=== PATIENT | male | born 1950 ===

== ENCOUNTER → 2023-11-11 17:34 | Outpatient (REF) | payer MEDICARE, SELFPAY | LOC: MRI 3T 17:34 | PROVIDERS: ATTENDING PHYSICIAN Specialist; FAMILY PHYSICIAN Internal Medicine | DX: R97.20 Elevated prostate specific antigen [PSA] (principal) | CPT/HCPCS: 72197; A9575 ==

== ENCOUNTER 2023-12-06 06:25 | Day surgery (SDC) | payer MEDICARE, SELFPAY ==
[2023-12-02 08:55] VITALS: BMI 26.6
[2023-12-02 10:07] LABS: Hemoglobin 15.8 g/dL (13.0-18.0); Mean Corp Hgb Conc. 35.1 g/dL (33.0-37.0); Mean Corpuscular Hgb 30.7 pg (27.0-31.0); Mean Corpuscular Volume 87.5 fL (80.0-94.0); Mean Platelet Volume 9.7 fL (7.4-10.4); Platelet Count 182 10^3/uL (130-400); Red Blood Cell Count 5.14 10^6/uL (4.70-6.10); Red Cell Dist. Width 12.8 % (11.5-14.5); White Blood Cell Count 4.6 10^3/uL (4.8-10.8)
[2023-12-02 10:14] LABS: INR 0.98; PT 12.8 Sec (11.4-14.6)
[2023-12-02 10:15] LABS: APTT 25.9 Sec (23.4-35.0)
[2023-12-02 10:23] LABS: Blood Urea Nitrogen 22 mg/dl (9-20); Calcium 9.6 mg/dl (8.4-10.2); Carbon Dioxide 25 mmol/L (22-30); Chloride 105 mmol/L (98-107); Estimated Creatinine Clearance 50 ml/min; Glucose 100 mg/dl (70-99); Potassium 4.8 mmol/L (3.5-5.1); Sodium 138 mmol/L (135-145); eGFR > 60.00
[2023-12-06] VITALS (15 sets, daily range): BP systolic 64–117; BP diastolic 52–83; BMI 26.6
[2023-12-06] MEDS: NEOMYCIN ENEMA 1 BOTTLE RECTAL (09:37)
[2023-12-06] MEDS: NORMOSOL-R 1000 IV (09:47)
== END 2023-12-06 17:15 | disposition home or self-care (01) ==
LOC: SDS 06:25
PROVIDERS: ATTENDING PHYSICIAN Specialist; FAMILY PHYSICIAN Internal Medicine
DX: C61 Malignant neoplasm of prostate (principal); R93.89 Abnormal findings on diagnostic imaging of other specified body structures; Z80.42 Family history of malignant neoplasm of prostate
CPT/HCPCS: 55700; 36415; 76998; 80048; 85027; 85610; 85730; 88305; 88344; 93005

== ENCOUNTER 2024-01-18 06:10 | Day surgery (SDC) | payer MEDICARE, SELFPAY ==
[2024-01-18] VITALS (17 sets, daily range): BP systolic 86–127; BP diastolic 51–80; BMI 24.4
[2024-01-18] MEDS: NORMOSOL-R/PLASMALYTE-A 1000 IV ×2 (07:05→15:14)
[2024-01-18] MEDS: NEOMYCIN ENEMA 1 BOTTLE RECTAL (07:15)
--- NOTE | 2024-01-18 13:30 | PTCARENOTE ---
Pt was received from PACU at 1330. Denies pain. Sutton draining yellow urine. Pt is resting in bed comfortably.
[2024-01-18] MEDS: TORADOL 15 MG IV ×2 (16:46→22:03)
[2024-01-18] MEDS: COLACE 100 MG PO (16:46)
[2024-01-18] MEDS: LIPITOR 10 MG PO (16:50)
[2024-01-18] MEDS: POLYSPORIN/DOUBLE ANTIBIOTIC 1 APPLIC TOPICAL (22:04)
[2024-01-19] MEDS: NORMOSOL-R/PLASMALYTE-A 1000 IV (03:13)
[2024-01-19 03:24] VITALS: BP 114/57
--- NOTE | 2024-01-19 04:24 | PTCARENOTE ---
pt is aaox3, no c/o pain. walked the halls w/o issue.
[2024-01-19] MEDS: TORADOL IV (05:19)
[2024-01-19 07:57] LABS: Hematocrit 40.5 % (39.0-52.0); Mean Corp Hgb Conc. 34.6 g/dL (33.0-37.0); Mean Corpuscular Hgb 30.8 pg (27.0-31.0); Mean Platelet Volume 9.9 fL (7.4-10.4); Platelet Count 176 10^3/uL (130-400); Red Blood Cell Count 4.55 10^6/uL (4.70-6.10); Red Cell Dist. Width 12.9 % (11.5-14.5); White Blood Cell Count 9.8 10^3/uL (4.8-10.8)
[2024-01-19 08:00] VITALS: BP 117/72
[2024-01-19 08:29] LABS: Blood Urea Nitrogen 27 mg/dl (9-20); Carbon Dioxide 26 mmol/L (22-30); Chloride 100 mmol/L (98-107); Estimated Creatinine Clearance 59 ml/min; Glucose 115 mg/dl (70-99); Potassium 4.8 mmol/L (3.5-5.1); Sodium 135 mmol/L (135-145); eGFR > 60.00
--- NOTE | 2024-01-19 09:49 | CM ---
Addendum entered by Elsie Carballo 01/19/24 10:44:
Pharmacy: [facility]
PCP: Dr. Renae
Original Note:
launch manager reviewed patient's chart and met with patient and patient lives with his spouse in a 2 story home, patient is independent with adl's and ambulation, no dme, patient drives, per patient his plan is to home with visiting nurses, case
engineering research manager reviewed visiting nurses options and referral sent to [facility].
Plan; Home with [facility].
--- NOTE | 2024-01-19 10:17 | W.PN.URO.CBU ---
Today's Communication / Plan
-
discharge
Assessment / Plan
-
stable
Diagnosis
-
Date of Service: January 19, 2024
-
Patient Diagnosis: prostate cancer s/p RALRP
Post Op Day: 1
Subjective
-
expected pelvic pain
Objective
-
Vital Signs
Temp Pulse Resp BP Pulse Ox
97.9 F 81 19 117/72 99
01/19/24 08:00 01/19/24 08:00 01/19/24 08:00 01/19/24 08:00 01/19/24 08:00
Intake and Output
01/18/24 01/19/24 01/20/24
06:59 06:59 06:59
Intake Total 1500 / 1500
Output Total 1250 / 1250 1400 / 1400
Balance 250 / 250 -1400 / -1400
Intake:
Oral fluids 300 / 300
IV fluids (Total) 1200 / 1200
Output:
Urine, Ward 950 / 950 1400 / 1400
Urine, Voided 300 / 300
Laboratory Results
01/19/24 06:15
01/19/24 06:15
Physical Exam
-
General - well developed, well nourished, no acute distress
Chest - clear bilaterally
Abdomen - soft, non-tender, positive bowel sounds, no CVAT, no incisional pain or distention
Genitalia - ward with cally urine
Skin - warm & dry with no rash
Neuro - AOx3, no motor deficits
Extremities - no clubbing, no cyanosis, no edema
Dressings - clean, dry, intact
[2024-01-19] MEDS: COLACE 100 MG PO (10:23)
[2024-01-19] MEDS: POLYSPORIN/DOUBLE ANTIBIOTIC 1 APPLIC TOPICAL (10:25)
[2024-01-19] MEDS: TORADOL 15 MG IV (10:29)
[2024-01-19] MEDS: NORMOSOL-R/PLASMALYTE-A IV (10:38)
[2024-01-19 11:09] LABS: Hepatitis C Antibody Negative (Negative)
--- NOTE | 2024-01-19 11:23 | VNURNOTE ---
Home health liaison met with patient to discuss [facility] services, visit scheduling/frequency, homebound status and pet policy. Patient understands home visits will be 1-2 times a week to assess and teach medical management, ward teaching. Patient
aware a visiting nurse will contact him for start of care within 1-2 days after discharge from . [facility] Referral completed in care port by family caseworker
[2024-01-19 11:40] VITALS: BP 97/65
[2024-01-19] MEDS: COLACE PO (14:59)
== END 2024-01-19 15:06 | disposition home or self-care (01) ==
LOC: SDS 06:10
PROVIDERS: ATTENDING PHYSICIAN Specialist; FAMILY PHYSICIAN Internal Medicine
DX: C61 Malignant neoplasm of prostate (principal)
CPT/HCPCS: 55866; 38571; 88307; 88309; 80048; 85027; 86803